=== PATIENT | male | born 1990 | race Caucasian/White ===

== ENCOUNTER 2016-12-04 23:58 | Emergency (ER) | payer SELFPAY ==
[~2016-12-04] VITALS: Ht 177.8 cm; Wt 101.0 kg
[~2016-12-04 23:58] MED LIST: ZITHTAB6 PO
[2016-12-05 00:32] VITALS: BP 111/85; PULSE 81; RESP 18; TEMP 98.7; O2SAT 96
[2016-12-05 02:14] VITALS: BP 111/85; PULSE 81; RESP 18; TEMP 98.7; O2SAT 96
[2016-12-05 02:28] VITALS: BP 135/77; PULSE 95; RESP 18; O2SAT 98
[2016-12-05] MEDS ORDERED: PRIL20CA9 PO (02:33)
--- NOTE | 2016-12-05 02:48 | PD ---
HPI Chief Complaint: Musculoskeletal Complaint Time Seen by Provider: 02:44 Travel History International Travel<30 days: No Contact w/Intl Traveler<30days: No Traveled to known affect area: No History of Present Illness HPI The patient is a 26-year-old male that was skateboarding about 24 hours ago when he tripped after hitting a rock and landed on his left side. He complains of left shoulder pain and left chest pain because the arm pushed into the chest. He denies any significant elbow pain. There was no loss of consciousness, blurred vision, nausea, vomiting, head trauma or C-spine, T- spine or LS-spine pain. PFSH Past Medical History Diminished Hearing: No Immunizations Current: Yes Past Surgical History Other Surgery: Yes (LEFT ARM) Social History Alcohol Use: No Tobacco Use: Yes (1 ppd/vapor) Substance Use: No Allergies-Medications (Allergen,Severity, Reaction): Coded Allergies: No Known Allergies (Verified , 12/05/16) Reported Meds & Prescriptions Reported Meds & Active Scripts Active Reported Prilosec (Omeprazole) 20 Mg Cap 20 Mg PO DAILY Review of Systems Except as stated in HPI: all other systems reviewed are Neg Physical Exam Narrative GENERAL: Well-nourished, well-developed patient in slight apparent distress with his left shoulder pain and chest wall pain. His vital signs are normal. SKIN: Focused skin assessment warm/dry. HEAD: Normocephalic. EYES: No scleral icterus. No injection or drainage. NECK: Supple, trachea midline. No JVD or lymphadenopathy. CARDIOVASCULAR: Regular rate and rhythm without murmurs, gallops, or rubs. RESPIRATORY: Breath sounds equal bilaterally. No accessory muscle use. There is chest wall pain on the left anterior/lateral chest wall. There is no flail present. Good breath sounds are heard bilaterally. GASTROINTESTINAL: Abdomen soft, non-tender, nondistended. MUSCULOSKELETAL: No cyanosis, or edema. No deformity is noted on the shoulder. He has full range of motion of the left shoulder but with some pain. Good capillary refill and pinprick is present distally on the left hand. There is tenderness on the anterior portion of the shoulder. BACK: Nontender without obvious deformity. No CVA tenderness. Data Data Last Documented VS Vital Signs Date Time Temp Pulse Resp B/P Pulse Ox O2 Delivery O2 Flow Rate FiO2 12/05/16 02:28 95 18 135/77 98 Room Air 12/05/16 02:14 98.7 Orders Chest, Pa & Lat (12/05/16 02:44) Shoulder, Complete (>2vws) (12/05/16 02:44) Ibuprofen (Motrin) (12/05/16 03:00) MDM Medical Decision Making Medical Screen Exam Complete: Yes Emergency Medical Condition: Yes Medical Record Reviewed: Yes Interpretation(s) The chest x-ray shows no acute disease. Left shoulder x-rays show normal. Differential Diagnosis Contusion shoulder, fracture shoulder, dislocation shoulder, pneumothorax, flail chest, pulmonary contusion, contusion chest wall Narrative Course The patient has a contusion of the shoulder and contusion of the chest wall. Plan: The patient should rest and take [id number] Motrin and rest the shoulder. Diagnosis Primary Impression: Contusion of shoulder, left Additional Impression: Contusion of chest wall Additional Instructions: As we discussed, rest and time and the treatment. Follow-up with your primary care physician if it hurts beyond a week. Med/Other Pt SpecificInfo: No Change to Meds Disposition: 01 DISCHARGE HOME Condition: Stable Cliff Hansen MD Dec 05, 2016 02:48
[2016-12-05] MEDS ORDERED: IBUPROFEN 800 MG TAB PO ONE (03:00)
--- NOTE | 2016-12-05 03:32 | RADHPO ---
EXAM DATE/TIME: 12/05/2016 03:02 [facility] COMPARISON: No previous studies available for comparison. INDICATIONS : Left shoulder pain after fall while skateboarding. MEDICAL HISTORY : None. SURGICAL HISTORY : None. ENCOUNTER: Initial ACUITY: 2 days PAIN SCORE: 6/10 LOCATION: Left shoulder FINDINGS: Multiple view examination of the left shoulder demonstrates no evidence of fracture or dislocation. The glenohumeral and acromioclavicular joints are maintained. There is normal range of motion betwee n internal and external rotation. Bony mineralization is normal. CONCLUSION: Normal examination for a patient of this age. Babatunde Leroy MD on December 05, 2016 at 3:30 Board Certified Radiologist. This report was verified electronically.
--- NOTE | 2016-12-05 03:32 | RADHPO ---
EXAM DATE/TIME: 12/05/2016 02:59 [facility] COMPARISON: No previous studies available for comparison. INDICATIONS : Chest pain after fall while skateboarding. MEDICAL HISTORY : None. SURGICAL HISTORY : None. ENCOUNTER: Initial ACUITY: 2 days PAIN SCORE: 6/10 LOCATION: Left chest FINDINGS: PA and lateral views of the chest demonstrate the lungs to be symmetrically aerated without evidence of mass, infiltrate or effusion. The cardiomediastinal contours are unremarkable. Osseous structure s are intact. CONCLUSION: No acute disease. Babatunde Leroy MD on December 05, 2016 at 3:30 Board Certified Radiologist. This report was verified electronically.
[2016-12-05 03:50] VITALS: BP 119/78; PULSE 81; RESP 18; O2SAT 100
== END 2016-12-05 04:09 | disposition home or self-care (01) ==
LOC: PHED 23:58
DX: S40.012A Contusion of left shoulder, initial encounter (principal); V00.131A Fall from skateboard, initial encounter; Y93.51 Activity, roller skating (inline) and skateboarding; Y92.9 Unspecified place or not applicable; Y99.8 Other external cause status
CPT/HCPCS: 71020; 73030; 99283